=== PATIENT | male | born 1990 | race Caucasian/White ===

== ENCOUNTER 2024-09-26 19:12 | Emergency (ER) | payer OTHER ==
[~2024-09-26] VITALS: Ht 172.7 cm; Wt 70.0 kg
[2024-09-26 20:05] VITALS: O2SAT 100
[2024-09-26] MEDS: MIDAZOLAM HCL 2 MG/2 ML VIAL IM ONE (20:05)
[2024-09-26] MEDS: OLANZAPINE 10 MG/VIAL IM ONE (20:06)
[2024-09-26 20:52] LABS: BASOPHILS % 0.4 % (0.0-2.0); EOSINOPHILS % 0.4 % (0.0-5.0); HEMATOCRIT. 41.6 % (42.0-52.0); HEMOGLOBIN. 14.1 g/dL (14.0-18.0); LYMPHOCYTES % 26.7 % (20.0-50.0); MEAN CORPUSCULAR HEMOGLOBIN 33.8 pg (28.0-32.0); MEAN CORPUSCULAR VOLUME 99.5 fL (80.0-94.0); MONOCYTES % 5.4 % (2.0-8.0); NEUTROPHILS % 67.1 % (40.0-76.0); PLATELET 297 x1000/uL (130-400); RED BLOOD CELL COUNT 4.19 mill/uL (4.7-6.1); RED CELL DISTRIBUTION WIDTH 12.2 % (11.6-14.6)
[2024-09-26 21:03] LABS: CHLORIDE 112 mEq/L (98-107); POTASSIUM 3.9 mEq/L (3.5-5.1); SODIUM 149 mEq/L (136-145)
[2024-09-26 21:04] LABS: CARBON DIOXIDE 25 mEq/L (21-32)
[2024-09-26 21:08] LABS: CLARITY URINE CLEAR (CLEAR); COLOR URINE YELLOW (YELLOW); GLUCOSE URINE NEGATIVE (NEGATIVE); KETONES URINE NEGATIVE (NEGATIVE); LEUKOCYTE ESTERASE URINE NEGATIVE (NEGATIVE); NITRITE URINE NEGATIVE (NEGATIVE); OCCULT BLOOD URINE 2+ (NEGATIVE); PH URINE 5.5 (4.5-8.0); PROTEIN URINE 1+ (NEGATIVE); SPECIFIC GRAVITY URINE 1.017 (1.005-1.030); UROBILINOGEN URINE 0.2 E.U./dL (0.2-1.0)
[2024-09-26 21:09] LABS: GLUCOSE 107 mg/dL (70-105); UREA NITROGEN BLOOD 7 mg/dL (9-23)
[2024-09-26 21:11] LABS: ACETAMINOPHEN < 2 ug/mL (10-30)
[2024-09-26 21:18] LABS: *AMPHETAMINES SCREEN URINE NEGATIVE (NEGATIVE); *BARBITURATES SCREEN URINE NEGATIVE (NEGATIVE); *BENZODIAZEPINES SCREEN URINE NEGATIVE (NEGATIVE); *COCAINE SCREEN URINE NEGATIVE (NEGATIVE); CANNABINOID URINE SCREEN PRESUMPTIVE POSITIVE (NEGATIVE); ETHANOL BLOOD 299 mg/dL (<10); METHADONE URINE SCREEN NEGATIVE (NEGATIVE); OPIATES URINE SCREEN NEGATIVE (NEGATIVE); PHENCYCLIDINE URINE SCREEN NEGATIVE (NEGATIVE)
[2024-09-26 21:19] LABS: ECSTASY MDMA SCREEN URINE NEGATIVE (NEGATIVE)
[2024-09-26] MEDS: TETANUS, DIPHTHERIA, PERTUSSIS VAC/PF 0.5ML (>10YR OLD) IM ONE (21:24)
[2024-09-26 21:28] LABS: BACTERIA URINE 1+; SQUAMOUS EPITHELIAL CELL URINE FEW /lpf (RARE/1+); WBC URINE 0-2 /hpf (0-2)
[2024-09-27] MEDS: QUETIAPINE FUMARATE 50MG TABLET PO SCH (09:00)
[2024-09-28 12:02] VITALS: TEMP 36.8
[2024-09-28 16:00] VITALS: BP 128/42; PULSE 60; RESP 18; O2SAT 100
== END 2024-09-28 16:00 ==
LOC: ER 19:12
DX: R45.1 Restlessness and agitation (principal); S01.81XA Laceration without foreign body of other part of head, initial encounter; F31.9 Bipolar disorder, unspecified; I49.9 Cardiac arrhythmia, unspecified; Z20.822 Contact with and (suspected) exposure to COVID-19; X58.XXXA Exposure to other specified factors, initial encounter; Y93.89 Activity, other specified; Y92.89 Other specified places as the place of occurrence of the external cause; Y99.8 Other external cause status
CPT/HCPCS: 80305; 80048; 81003; 80307; 80329; 80320; 85025; 36415; 70450; 72125; 90715; 93005; 90471; 96372; 99291; 87426; J3490; J2250; Z7610 ×5; G0480